=== PATIENT | female | born 1975 | race Caucasian/White ===

== ENCOUNTER → 2017-12-29 | Outpatient (CLI) | payer BC ==
[~2017-12-29] MED LIST: CELEXA 20MG20 MG/TAB PO; FISH OIL500 MG PO; PRENATAL VITAMI1 TAB PO
== END ==
LOC: MC.RAD 12:47
DX: N63.31 Unspecified lump in axillary tail of the right breast (principal); N63.11 Unspecified lump in the right breast, upper outer quadrant
CPT/HCPCS: G0279

== ENCOUNTER → 2018-01-02 | Outpatient (CLI) | payer BC | LOC: MC.RAD 09:51 | DX: N63.11 Unspecified lump in the right breast, upper outer quadrant (principal); N63.31 Unspecified lump in axillary tail of the right breast; Z98.82 Breast implant status ==

== ENCOUNTER → 2018-01-17 | Outpatient (CLI) | payer BC | LOC: COL.VAS 09:45 | DX: C50.411 Malignant neoplasm of upper-outer quadrant of right female breast (principal); Z17.1 Estrogen receptor negative status [ER-] ==

== ENCOUNTER 2020-01-22 09:34 | Observation (INO) | payer BC ==
[~2020-01-22] VITALS: Ht 170.2 cm; Wt 83.2 kg
[2020-01-22 10:48] LABS: BASO % 0.3 % (0.0-2.0); EOS % 0.2 % (0-4.0); GRAN # 7.1 (1.4-6.5); HEMATOCRIT 38.6 % (37.0-47.0); HEMOGLOBIN 12.5 g/dl (12.5-16.0); INR 1.3 (0.8-3.0); LYMPH % 11.6 % (20.0-51.0); MEAN CELL VOLUME 86 fl (80.0-100.0); MEAN CORPUSCULAR HEMOGLOBIN 28 pg (27.0-31.0); MEAN CORPUSCULAR HGB CONC 32 g/dl (33.0-37.0); MEAN PLATELET VOLUME 9.8 fl (7.4-10.4); MONO # 0.7 (0.1-0.6); MONO % 7.5 % (1.7-9.3); PLATELET COUNT 408 K/mm3 (130-400); PROTHROMBIN TIME 14.3 SECONDS (9.7-12.8); RED BLOOD COUNT 4.48 M/mm3 (4.10-5.30); REDCELL DISTRIBUTION WIDTH-CV 12.3 % (11.5-14.5)
[2020-01-22 10:51] LABS: PARTIAL THROMBOPLASTIN TIME 30.5 SECONDS (26.0-37.0)
[2020-01-22 10:55] LABS: ALANINE AMINOTRANSFERASE 15 U/L (4-34); ALBUMIN 3.8 gm/dL (3.5-5.0); ALKALINE PHOSPHATASE 168 U/L (50-136); ANION GAP 11 mmol/L (7-16); AST,SGOT 19 U/L (15-37); BILIRUBIN,TOTAL 0.8 mg/dL (0.0-1.0); BLOOD UREA NITROGEN 12 mg/dL (7-17); CALCIUM 9.3 mg/dL (8.4-10.2); CARBON DIOXIDE 29 mmol/L (22-30); CHLORIDE 99 mmol/L (98-107); CREATININE, serum 0.66 (0.52-1.25); GLUCOSE 145 mg/dL (74-106); POTASSIUM 3.8 mmol/L (3.4-5.0); SODIUM 138 mmol/L (137-145); TOTAL PROTEIN 7.1 gm/dL (6.4-8.2)
[2020-01-22 11:14] LABS: TROPONIN-I < 0.012 ng/mL (0.000-0.035)
[2020-01-22 12:31] LABS: MUCOUS Present /lpf; PH 7 (5-8); URINE APPEARANCE Clear; URINE BACTERIA None Seen /hpf; URINE BILIRUBIN Negative (NEGATIVE); URINE BLOOD Negative (NEGATIVE); URINE COLOR Yellow; URINE GLUCOSE Negative (NEGATIVE); URINE KETONE Negative (NEGATIVE); URINE LEUKOCYTE ESTERASE Negative (NEGATIVE); URINE NITRATE Negative (NEGATIVE); URINE PROTEIN(semi-quant) Negative (NEGATIVE); URINE RBC 0-2 /hpf; URINE UROBILINOGEN Negative (NEGATIVE); URINE WBC 0-2 /hpf
[2020-01-22 12:44] LABS: COLLECTION METHOD CLEAN CATCH
[2020-01-22] MEDS ORDERED: PROVENTIL0.09 MG/A1 IH (12:53)
[2020-01-22] MEDS ORDERED: TOPROL XL 25MG25 MG PO (12:53)
[2020-01-22] MEDS ORDERED: ASPIRIN 81M81 MG/TA2 PO (14:39)
--- NOTE | 2020-01-22 14:51 | NUR ---
Patient up to room 311 by wheelchair from ED
[2020-01-22] MEDS ORDERED: MASON NATURAL2000 IU PO (15:41)
[2020-01-22 15:50] VITALS: BP 120/54; PULSE 107; TEMP 98.2
[2020-01-22 17:08] LABS: C-REACTIVE PROTEIN 16.8 mg/dL (0.0-0.9); TROPONIN-I < 0.012 ng/mL (0.000-0.035)
[2020-01-22 17:17] LABS: TSH w REFLEX 0.485 uIU/mL (0.465-4.680)
--- NOTE | 2020-01-22 17:49 | NUR ---
Patient sitting up in bed watching TV. Waiting on to bring personal belongings. A&Ox4. VSS. IV CDI. Nurse oriented patient to location, room and call light when first up to the floor. Denies pain and discomfort. No further needs expressed from the patient. Call light within reach
--- NOTE | 2020-01-22 19:15 | NUR ---
Received report from Tisha. Seen patient awake in bed. She is alert and oriented. She denies pain. Placed right arm restriction band and signage. With INT on left AC. Call light within reach.
[2020-01-22 20:06] VITALS: BP 96/57; PULSE 99; TEMP 98.5
[2020-01-22 23:45] VITALS: BP 106/41; PULSE 91; TEMP 98.1
--- NOTE | 2020-01-23 00:20 | NUR ---
Explained to patient regarding SCD. She is aware that it is for prevention of blood clots. She refused to have it placed tonight and she said she'll wait till morning.
[2020-01-23 03:46] VITALS: BP 90/56; PULSE 94; TEMP 97.6
[2020-01-23 06:18] LABS: HEMOGLOBIN 11.6 g/dl (12.5-16.0); MEAN CELL VOLUME 86 fl (80.0-100.0); MEAN CORPUSCULAR HEMOGLOBIN 28 pg (27.0-31.0); MEAN CORPUSCULAR HGB CONC 32 g/dl (33.0-37.0); MEAN PLATELET VOLUME 9.6 fl (7.4-10.4); PLATELET COUNT 365 K/mm3 (130-400); RED BLOOD COUNT 4.17 M/mm3 (4.10-5.30); REDCELL DISTRIBUTION WIDTH-CV 12.5 % (11.5-14.5)
[2020-01-23 06:38] LABS: CALCIUM 8.9 mg/dL (8.4-10.2); CREATININE, serum 0.65 (0.52-1.25)
--- NOTE | 2020-01-23 07:00 | NUR ---
Patient had uneventful night. She denies pain. No nausea or vomiting. Will endorse to day shift nurse.
[2020-01-23 08:00] VITALS: BP 103/48; PULSE 86; TEMP 97.8
[2020-01-23 12:00] VITALS: BP 103/59; PULSE 80; TEMP 98.4
[2020-01-23 12:35] LABS: C-REACTIVE PROTEIN 15.5 mg/dL (0.0-0.9)
--- NOTE | 2020-01-23 13:23 | NUR ---
SW met with patient to complete intake. Patient provides that she lives in [place] with her Zander [phone]. Patient provides that she does not untilize any DME and is independent with her ADL's. Patient states that her PCP is Dr. Villa, pharmacy is [facility], and that she is able to afford her medication. Patient states she does not wish to appoint anyone as her DPOA-HC at this time. Patient plans to go home upon her discharge and states that she does not have any concerns with doing so when that time comes. SW will continue to follow.
[2020-01-23] MEDS ORDERED: EPA FISH OIL1 SGL PO (14:01)
[2020-01-23] MEDS ORDERED: PROTONIX 40MG T40 MG PO (14:02)
[2020-01-23] MEDS ORDERED: MOTRIN 600600 MG/TAB PO (14:02)
[2020-01-23] MEDS ORDERED: CELEXA 20MG20 MG/TAB PO (14:02)
[2020-01-23] MEDS ORDERED: COLCRYS0.6 MG PO (14:03)
--- NOTE | 2020-01-23 15:13 | NUR ---
Patient ambulated independently with nursing staff to the ER entrance to personal vehicle. Nurse reviewed discharge paperwork and patient verbalized an understanding to follow doctors orders. No further needs expressed fromt the patient.
== END 2020-01-23 15:00 | disposition home or self-care (01) ==
LOC: COL.ER 09:34 → MEDICAL 12:37
PROVIDERS: Emergency Medicine; Internal Medicine Adult Congenital Heart Disease; Nurse Practitioner Primary Care; Physician Assistant; ADMIT Student in an Organized Health Care Education/Training Program
DX: R50.9 Fever, unspecified (principal); J18.9 Pneumonia, unspecified organism; R07.9 Chest pain, unspecified; I31.3 Pericardial effusion (noninflammatory); J98.11 Atelectasis; J90 Pleural effusion, not elsewhere classified; Z85.3 Personal history of malignant neoplasm of breast; D47.3 Essential (hemorrhagic) thrombocythemia; Z88.1 Allergy status to other antibiotic agents; Z79.82 Long term (current) use of aspirin; Z90.13 Acquired absence of bilateral breasts and nipples; K21.9 Gastro-esophageal reflux disease without esophagitis; Z92.3 Personal history of irradiation; Z92.21 Personal history of antineoplastic chemotherapy; I34.0 Nonrheumatic mitral (valve) insufficiency
CPT/HCPCS: Q9967